=== PATIENT | female | born 1985 | race Two or more races ===

== ENCOUNTER 2019-08-04 16:33 | Emergency (ER) | payer BC, OTHER ==
[~2019-08-04] VITALS: Ht 162.6 cm; Wt 92.5 kg
[2019-08-04 16:53] VITALS: BP 140/103
[2019-08-04] MEDS ORDERED: ACETAMINOPHEN 500 MG TAB PO ONE (17:00)
[2019-08-04] MEDS ORDERED: TETANUS-DIPTH-ACEL PERTUSSIS 0.5ML SYR Tdap IM ONE (17:00)
[2019-08-04] MEDS ORDERED: LIDOCAINE 1% HCL (LOCAL ANESTH.) INJ 20ML MDV ID ONE (17:00)
== END 2019-08-04 18:06 | disposition home or self-care (01) ==
LOC: ER 16:33
DX: S61.216A Laceration without foreign body of right little finger without damage to nail, initial encounter (principal); W25.XXXA Contact with sharp glass, initial encounter; Y93.89 Activity, other specified; Y92.89 Other specified places as the place of occurrence of the external cause; Y99.8 Other external cause status
CPT/HCPCS: 12002; 90471; 90715; 99283; J2001